=== PATIENT | female | born 1985 | race African-American/Black ===

== ENCOUNTER 2016-12-05 16:13 | Emergency (ER) | payer OTHER ==
[2016-12-05 16:28] VITALS: BP 142/81; PULSE 110; TEMP 98.1; BMI 29.6
[2016-12-05] MEDS ORDERED: RANITIDINE HCL 150 MG TABLET (FP) PO ONE (17:05)
[2016-12-05] MEDS ORDERED: RANITIDINE HCL 150 MG TABLET (FP) ONE (17:13)
--- NOTE | 2016-12-05 17:13 | PDOC ---
History of Present Illness - General Chief Complaint: Chest Pain Stated Complaint: HEARTBURN/9 WKS Time Seen by Provider: 12/05/16 16:55 History Source: Patient Exam Limitations: No Limitations - History of Present Illness Initial Comments: 12/08/16 08:32 31 yr female states 9 weeks with constipation and heartburn and nausea. Pt denies abd pain no urinary complainst, no back pain or chills. Pt states she was seen at other ER last night had pepcid and felt better. Timing/Duration: reports: intermittent Quality: reports: mild Abdominal Pain Onset Location: denies: RUQ, LUQ, RLQ, LLQ, epigastric, periumbilical, suprapubic, generalized abdomen, flank, unknown, other Pain Radiation: reports: no radiation Past History - Past Medical History Allergies/Adverse Reactions: Allergies Allergy/AdvReac Type Severity Reaction Status Date / Time penicillin G Allergy Severe Hives Verified 12/05/16 16:24 Home Medications: Ambulatory Orders Vit/Iron Fumarate/FA [ Tablet] 1 each PO BID 12/13/14 Acetaminophen [Tylenol .Regular Strength -] 650 mg PO Q4H PRN #20 tablet Ferrous Sulfate [Feosol] 325 mg PO BID #60 ud 01/21/15 Ibuprofen [Motrin -] 600 mg PO Q4H PRN #30 tablet 01/21/15 Vitamins (Sjr) - 1 tab PO DAILY #30 tablet 01/21/15 Ranitidine HCl [Zantac] 150 mg PO BID #28 tablet 12/05/16 Asthma: No Cancer: No Cardiac Disorders: No Diabetes: No HTN: No Seizures: No Thyroid Disease: No - Family Disease History Comment:: 12/08/16 08:33 unk - Immunization History Immunization Up to Date: Yes - Psycho/Social/Smoking Cessation Hx Suicidal Ideation: No Smoking History: Never smoked Have you smoked in the past 12 months: No Hx Alcohol Use: No Drug/Substance Use Hx: No Substance Use Type: None Hx Substance Use Treatment: No Abd/GI Specific PMHX - Complaint Specific PMHX Gall Bladder Disease: No GERD: No Hepatitis: No GI Ulcer Disease: No Review of Systems - Review of Systems Able to Perform ROS?: Yes Is the patient limited Yakut proficient: No Constitutional: No: Symptoms Reported HEENTM: No: Symptoms Reported Respiratory: No: Symptoms reported Cardiac (ROS): No: Symptoms Reported ABD/GI: Yes: Symptoms Reported *Physical Exam - Vital Signs Last Vital Signs Temp Pulse Resp BP Pulse Ox 98.1 F 110 H 20 142/81 100 12/05/16 16:24 12/05/16 16:24 12/05/16 16:24 12/05/16 16:24 12/05/16 16:24 - Physical Exam General Appearance: Yes: Nourished, Appropriately Dressed HEENT: positive: EOMI, DURGA, Normal ENT Inspection, TMs Normal, Pharynx Normal Neck: positive: Supple. negative: Tender Respiratory/Chest: positive: Lungs Clear, Normal Breath Sounds. negative: Chest Tender Cardiovascular: positive: Regular Rhythm, Regular Rate Gastrointestinal/Abdominal: positive: Normal Bowel Sounds, Soft. negative: Tender Musculoskeletal: positive: Normal Inspection Extremity: positive: Normal Capillary Refill, Normal Inspection, Normal Range of Motion Integumentary: positive: Normal Color, Dry, Warm Neurologic: positive: Fully Oriented, Alert, Normal Mood/Affect, Normal Response , Motor Strength 5/5 Medical Decision Making - Medical Decision Making 12/08/16 08:33 cc: early with reflux after eating certain foods, worse at night pt states I have discussed with pat changes in diet to help with constipation and with heartburn. 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 will give zantac (safe category B and preferred in ) *DC/Admit/Observation/Transfer Diagnosis at time of Disposition: Gastric reflux Constipation Qualifiers: Constipation type: unspecified constipation type Qualified Code(s): K59.00 - Constipation, unspecified - Discharge Dispostion Disposition: HOME Condition at time of disposition: Good - Prescriptions Prescriptions: Ranitidine HCl [Zantac] 150 mg PO BID #28 tablet - Patient Instructions Additional Instructions: drink Prune Juice every Day at least 8 ounces you can increase until desired effect drink 2 liters of water avoid fatty foods, fast foods, spicy foods that may trigger gas increase fiber in diet to help with constipation take Zantac as prescribed for 2 weeks if needed also take TUMS sparingly not in excess drink milk to help with heartbuen follow with your groundskeeper porter for follow up
== END 2016-12-05 17:19 | disposition home or self-care (01) ==
LOC: JERFT 16:13
DX: O99.89 Other specified diseases and conditions complicating pregnancy, childbirth and the puerperium (principal); K21.9 Gastro-esophageal reflux disease without esophagitis; Z3A.09 9 weeks gestation of pregnancy
CPT/HCPCS: 99281-25

== ENCOUNTER 2019-10-09 06:45 | Inpatient (IN) | payer OTHER ==
[2019-10-09] MEDS ORDERED: VANCOMYCIN 1 GRAM (PRE-DOCKED) 1,000 MG/250 ML BAG IVPB ONE (08:00)
[2019-10-09] MEDS ORDERED: DEXTROSE 5%-LACTATED RINGERS 1,000 ML IV SCH (08:00)
[2019-10-09] MEDS ORDERED: ELECTROLYTE-148 SOLN 1,000 ML IV SCH (08:15)
[2019-10-09] MEDS ORDERED: LIDOCAINE HCL 1% PRESERVATIVE FREE - 30ML VIAL ONE (08:27)
[2019-10-09] MEDS ORDERED: OXYTOCIN 20 UNITS in 0.9% NS 20 UNIT/1,000 ML INFUS.BAG IV ONE ×2 (08:27→11:33)
--- NOTE | 2019-10-09 09:18 | HP ---
Past Medical History - Primary Care Physician PCP:: Brody Clarke - Admission Chief Complaint: Active labor History Source: Patient Limitations to Obtaining History: No Limitations - Past Medical History SENIOR INDUSTRIAL ENGINEER: No: Alzheimer's, CVA, Dementia, Migraine, Multiple Sclerosis, Peripheral Neuropathy, Parkinson's, Seizure, Syncope, TIA, Vertigo, Other Cardiovascular: Yes: Other (asd s/p repair age 11). No: AFIB, Aneurysm, Aortic Insufficiency, Aortic Stenosis, CAD, CHF, Deep Vein Thrombosis, HTN, Hyperlipdemia, OK, Mitral Insufficiency, Mitral Stenosis, Murmur, Pulmonary Hypertension Pulmonary: No: Asthma, Bronchitis, Cancer, COPD, O2 Dependent, Pneumonia, Previously Intubated, Pulmonary Embolus, Pulmonary Fibrosis, Sleep Apnea, Other Gastrointestinal: No: Ascites, Cancer, Constipation, Crohn's Disease, Diverticulitis, Diverticulosis, Esophageal Varices, Gastritis, GERD, GI Bleed, Hemorrhoids, Hiatal Hernia, Inflamatory Bowel Disease, Irritable Bowel Disease, Pancreatitis, Peptic Ulcer Disease, Ulcerative Colitis, Other Hepatobiliary: No: Cirrhosis, Cholelithiasis, Cholecystitis, Choledocholithiasis , Hepatitis A, Hepatitis B, Hepatitis C, Other Renal/: No: Renal Failure, Renal Inusuff, BPH, Cancer, Hematuria, Hemodialysis , Neurogenic Bladder, Renal Calculi, UTI, Other Reproductive: No: Ectopic , Endometriosis, Fibroids, PID, Polycystic Ovary Syndrome, Postmenopausal, Other Heme/Onc: Yes: Anemia (during pregn). No: B12 Deficiency, Bleeding Disorder, Cancer, Current Chemotherapy, Current Radiation Therapy, Hemochromatosis, Hypercoaguable State, Myeloproliferative Synd, Sickle Cell Disease, Sickle Cell Trait, Thrombocytopenia, Other Infectious Disease: No: AIDS, C-Diff, Herpes Zoster, HIV, MRSA, STD's, Tuberculosis, VREF, Other Psych: No: Addictions, Anxiety, Bipolar, Depression, Panic, Psychosis, Schizophrenia, Other Musculoskeletal: No: Bursitis, Chronic low back pain, Hemiparesis, Hemiplegia, Osteoarthritis, Paraplegia, Other Rheumatology: No: Fibromyalgia, Gout, Lupus, Rheumatoid Arthritis, Sarcoidosis, Vasculitis, Other ENT: No: Allergic Rhinitis, Sinusitis, Other Endocrine: No: Madison's Disease, [place]'s Disease, Diabetes Insipidus, Diabetes Mellitus, Hyperparathyroidism, Hyperthyroidism, Hypothyroidism, Osteopenia, SIADH, Other Dermatology: No: Basal Cell, Cellulitis, Eczema, Melanoma, Psoriasis, Squamous Cell, Other - Past Surgical History Past Surgical History: Yes: Hx Myomectomy: No Hx Transabdominal Cerclage: No Additional Surgical History: followed by 2 successful - Smoking History Smoking history: Never smoked Have you smoked in the past 12 months: No - Alcohol/Substance Use Hx Alcohol Use: No History of Substance Use: reports: None Home Medications - Allergies Allergies/Adverse Reactions: Allergies Allergy/AdvReac Type Severity Reaction Status Date / Time penicillin G Allergy Severe Hives Verified 10/09/19 07:49 - Home Medications Home Medications: Ambulatory Orders Ferrous Sulfate [Feosol] 325 mg PO BID #60 ud 01/21/15 Vitamins (Sjr) - 1 tab PO DAILY #30 tablet 01/21/15 Family Medical History Family History: Unremarkable Review of Systems - Review of Systems Constitutional: reports: No Symptoms Eyes: reports: No Symptoms HENT: reports: No Symptoms Neck: reports: No Symptoms Cardiovascular: reports: No Symptoms Respiratory: reports: No Symptoms Gastrointestinal: reports: No Symptoms Genitourinary: reports: No Symptoms Breasts: reports: No Symptoms Reported Musculoskeletal: reports: No Symptoms Integumentary: reports: No Symptoms Neurological: reports: No Symptoms Endocrine: reports: No Symptoms Hematology/Lymphatic: reports: No Symptoms Psychiatric: reports: No Symptoms Physical Exam - Maternity Constitutional: Yes: Well Nourished HENT: Yes: Atraumatic Neck: Yes: Supple Cardiovascular: Yes: Regular Rate and Rhythm Breast(s): Yes: Other (deferred) - Abdominal Exam/OB Number of Fetuses: Single Presentation: Vertex Contractions: Yes Regularity: Regular Intensity: Moderate Monitor Mode: External Heart Rate (range): 160 Category: II Accelerations: None Decelerations: None - Vaginal Exam/OB Vaginal Bleediing: No Dilatation (cm): 10 Effacement (%): 0 Amniotic Membrane Status: Ruptured Amniotic Fluid: Yes: Meconium Stained Presentation: Vertex/Position (asynclitic, moderate meconium) Station: 0 - Physical Exam Musculoskeletal: Yes: WNL Extremities: Yes: WNL Edema: Yes Edema: LLE: Trace, RLE: Trace Integumentary: Yes: WNL Deep Tendon Reflex Grade: Normal +2 ...Motor Strength: WNL Psychiatric: Yes: Alert, Oriented Imaging - Results Ultrasound: Pending, Other (no abvailable records) Problem List - Problems (1) 40 weeks gestation of Code(s): Z3A.40 - 40 WEEKS GESTATION OF (2) (vaginal after ) Code(s): O34.219 - MATERNAL CARE FOR UNSP TYPE SCAR FROM PREVIOUS DEL Assessment/Plan 34 y/o Grand multiparous female at 40wks as per patient, no records available, fht cat I-II due to episodes of minimal variability, prior CD and 2 successful , desiring TOLAC, meconium stained fluid, asynclitic, poor maternal expulsive efforts. Patient counseled regarding TOLAC after CD and all questions answered. -Intrauterine resuscitation efforts -Passive descent -Continuous monitoring -Efforts will be made to obtain records.
[2019-10-09] MEDS ORDERED: WITCH HAZEL 50% (TUCKS) 40 PAD/JAR PAD TP PRN (10:00)
[2019-10-09] MEDS ORDERED: OXYTOCIN 20 UNITS in 0.9% NS 20 UNIT/1,000 ML INFUS.BAG IV SCH (10:00)
[2019-10-09] MEDS ORDERED: BENZOCAINE 20% 57 GM BOTTLE TP PRN (10:00)
[2019-10-09] MEDS ORDERED: BISACODYL 10 MG SUPP.RECT RC PRN (10:00)
[2019-10-09] MEDS ORDERED: BENZOCAINE 28 GM HEMORRHOIDAL OINTMENT TP PRN (10:00)
[2019-10-09] MEDS ORDERED: MISOPROSTOL 100 MCG TABLET PV ONE (10:01)
[2019-10-09] MEDS ORDERED: IBUPROFEN 600 MG TABLET (FP) PO ONE (10:07)
[2019-10-09] MEDS ORDERED: ACETAMINOPHEN 325 MG TABLET (FP) ONE (10:08)
[2019-10-09] MEDS: ACETAMINOPHEN 325 MG TABLET (FP) PO PRN ×2 (10:10→18:31)
[2019-10-09] MEDS: IBUPROFEN 600 MG TABLET (FP) PO PRN ×2 (10:10→18:31)
--- NOTE | 2019-10-09 10:10 | PN ---
Delivery - Delivery Vaginal Delivery: Spontaneous Type of Anesthesia: None Episiotomy/Laceration: None EBL (cc): 50 Delivery, Single - Stages of Labor Placenta: Yes: Spontaneous - Condition of Infant Meat Carrier/Meat Cutter Present: No Infant Gender: Female Position: Left, OA Remarks - Remarks Remarks: delivered precipitously SIMON, no Nuchal cord. Cord clamped after delay and samples for gases and blood obtained. Placenta delivered spontaneously and intact, 3VC. Exam revealed firm fundus and no laceration. Excellent hemostasis noted and misoprostol administered HI prophylactically. Sponge and instrument count correct x 2 and confirmed by nurse.
[2019-10-09 10:23] VITALS: BMI 32.8
[2019-10-09 11:47] LABS: BASO % 0.3 % (0-2.0); EOS % 0.3 % (0-4.5); HEMATOCRIT 30.2 % (32.4-45.2); HEMOGLOBIN 9.3 GM/dL (10.7-15.3); MCH 22.4 pg (25.7-33.7); MCHC 30.7 g/dl (32.0-36.0); MEAN CELL VOLUME 72.9 fl (80-96); MEAN PLT VOLUME 8.4 fl (7.5-11.1); MONO % 7.4 % (3.8-10.2); PLATELET COUNT 306 K/MM3 (134-434); RBC 4.15 M/mm3 (3.60-5.2); RDW 25.5 % (11.6-15.6); WHITE BLOOD COUNT 9.1 K/mm3 (4.0-10.0)
[2019-10-09 11:52] LABS: BLOOD UREA NITROGEN 8.4 mg/dL (7-18); CALCIUM 8.8 mg/dL (8.5-10.1); CREATININE 0.6 mg/dL (0.55-1.3)
[2019-10-09] MEDS ORDERED: MISOPROSTOL 200 MCG TABLET PV ONE (12:00)
[2019-10-09 12:11] LABS: INR 0.93 (0.83-1.09)
[2019-10-09 12:14] LABS: ACTIVATED PTT 27.7 SECONDS (25.2-36.5)
[2019-10-09 14:27] LABS: ANISOCYTOSIS 1+; MACROCYTOSIS 0; PLATELET ESTIMATE NORMAL
--- NOTE | 2019-10-10 07:44 | PN ---
Post Progress Note - Subjective Subjective: Ambulating, tolerating PO, lochia decreased, breast and bottle feeding Post Day: 1 Type of Delivery: Vital Signs: Vital Signs Temperature 98.7 F 10/10/19 05:46 Pulse Rate 80 10/10/19 05:46 Respiratory Rate 18 10/10/19 05:46 Blood Pressure 102/59 L 10/10/19 05:46 O2 Sat by Pulse Oximetry (%) 100 10/09/19 11:00 Breast Exam: Yes: Soft Uterus: Yes: Fundus Firm Abdomen/GI: Yes: Abdomen soft Lochia, amount: Small Extremities: Yes: Calves non-tender Activity: Ambulating - Labs Labs: CBC WBC 9.1 K/mm3 (4.0-10.0) 10/09/19 10:46 RBC 4.15 M/mm3 (3.60-5.2) 10/09/19 10:46 Hgb 9.3 GM/dL (10.7-15.3) L 10/09/19 10:46 Hct 30.2 % (32.4-45.2) L 10/09/19 10:46 MCV 72.9 fl (80-96) L 10/09/19 10:46 MCH 22.4 pg (25.7-33.7) L 10/09/19 10:46 MCHC 30.7 g/dl (32.0-36.0) L 10/09/19 10:46 RDW 25.5 % (11.6-15.6) H 10/09/19 10:46 Plt Count 306 K/MM3 (134-434) D 10/09/19 10:46 MPV 8.4 fl (7.5-11.1) 10/09/19 10:46 Absolute Neuts (auto) 7.3 K/mm3 (1.5-8.0) 10/09/19 10:46 Neutrophils % 80.0 % (42.8-82.8) 10/09/19 10:46 Lymphocytes % 12.0 % (8-40) D 10/09/19 10:46 Monocytes % 7.4 % (3.8-10.2) 10/09/19 10:46 Eosinophils % 0.3 % (0-4.5) D 10/09/19 10:46 Basophils % 0.3 % (0-2.0) 10/09/19 10:46 Nucleated RBC % 0 % (0-0) 10/09/19 10:46 Hypochromia 1+ 10/09/19 10:46 Platelet Estimate Normal 10/09/19 10:46 Polychromasia 1+ 10/09/19 10:46 Poikilocytosis 1+ 10/09/19 10:46 Anisocytosis 1+ 10/09/19 10:46 Microcytosis 1+ 10/09/19 10:46 Macrocytosis 0 10/09/19 10:46 Problem List - Problems (1) 40 weeks gestation of Code(s): Z3A.40 - 40 WEEKS GESTATION OF (2) (vaginal after ) Code(s): O34.219 - MATERNAL CARE FOR UNSP TYPE SCAR FROM PREVIOUS DEL Assessment/Plan PPD # 1 S/P in stable condition -Continue inpatient care -Anticipate D/C home tomorrow
[2019-10-10 09:01] LABS: BASO % 0.7 % (0-2.0); HEMATOCRIT 28.8 % (32.4-45.2); HEMOGLOBIN 8.9 GM/dL (10.7-15.3); LYMPH % 14.6 % (8-40); MCH 22.5 pg (25.7-33.7); MCHC 30.8 g/dl (32.0-36.0); MEAN CELL VOLUME 72.9 fl (80-96); MONO % 6.8 % (3.8-10.2); NEUT % 75.9 % (42.8-82.8); PLATELET COUNT 294 K/MM3 (134-434); RBC 3.95 M/mm3 (3.60-5.2); RDW 25.2 % (11.6-15.6); WHITE BLOOD COUNT 12.1 K/mm3 (4.0-10.0)
[2019-10-10 13:12] VITALS: PULSE 84
[2019-10-10] MEDS ORDERED: SENNOSIDES/DOCUSATE COMBO (SENNA PLUS) TABLET (UD) PO PRN (22:00)
[2019-10-11] MEDS: IBUPROFEN 600 MG TABLET (FP) PO PRN (02:07)
[2019-10-11] MEDS: ACETAMINOPHEN 325 MG TABLET (FP) PO PRN (02:07)
--- NOTE | 2019-10-11 08:34 | DS ---
Physical Examination Vital Signs: Vital Signs Temperature 98.1 F 10/10/19 22:00 Pulse Rate 84 10/10/19 22:00 Respiratory Rate 20 10/10/19 22:00 Blood Pressure 118/68 10/10/19 22:00 O2 Sat by Pulse Oximetry (%) 100 10/09/19 11:00 Findings/Remarks: Ambulating, voiding, breast feeding, lochia decreased. Desiring to go home and all questions answered. Constitutional: Yes: No Distress Eyes: Yes: WNL HENT: Yes: Atraumatic Neck: Yes: Supple Cardiovascular: Yes: Regular Rate and Rhythm Respiratory: Yes: Regular Gastrointestinal: Yes: Normal Bowel Sounds ...Rectal Exam: Yes: Deferred Renal/: Yes: Other (deferred) Breast(s): Yes: Other (deferred) Musculoskeletal: Yes: WNL Extremities: Yes: WNL Edema: Yes Edema: LLE: Trace, RLE: Trace Integumentary: Yes: WNL Neurological: Yes: Alert, Oriented ...Motor Strength: WNL Psychiatric: Yes: Alert, Oriented Labs: CBC, BMP 10/10/19 07:45 10/09/19 10:46 Discharge Summary Problems reviewed: Yes Reason For Visit: LABOR Current Active Problems (vaginal after ) (Acute) Procedures: Principal: vaginal delivery after section Hospital Course: Uncomplicated and recovery. patient seen and evaluated on PPD # 2 and in stable condition, ready for discharge. Plan of Treatment: PP recovery Condition: Stable - Instructions Diet, Activity, Other Instructions: Return to regular diet and activity as tolerated. Follow up in 6-8 weeks for PP visit. Call MD with any questions or concerns Referrals: Aura Leon MD [Staff Physician] - Disposition: HOME - Home Medications Comprehensive Discharge Medication List: Ambulatory Orders Ferrous Sulfate [Feosol] 325 mg PO BID #60 ud 01/21/15 Vitamins (Sjr) - 1 tab PO DAILY #30 tablet 01/21/15 Ibuprofen 600 mg PO Q6H PRN #30 tablet 10/09/19
[2019-10-11 11:57] VITALS: BP 127/77; TEMP 98.2
== END 2019-10-11 11:30 | disposition home or self-care (01) | DRG 560 ==
LOC: JLDR 06:45 → J3W 12:00
PROVIDERS: ADMIT Student in an Organized Health Care Education/Training Program; ATTEND Student in an Organized Health Care Education/Training Program
PROC: 10E0XZZ Delivery of Products of Conception, External Approach (ICD-10-PCS; principal; 2019-10-09)
DX: O34.211 Maternal care for low transverse scar from previous cesarean delivery (principal); N85.8 Other specified noninflammatory disorders of uterus; Z3A.40 40 weeks gestation of pregnancy; Z37.0 Single live birth
CPT/HCPCS: 36415; 36600; 59409; 80048; 82803; 85025; 85610; 85730; 86593; 86850; 86900; 86901; 87389

== ENCOUNTER 2021-03-16 23:15 | Inpatient (IN) | payer OTHER ==
[2021-03-17] MEDS: ELECTROLYTE-148 SOLN 1,000 ML IV SCH ×3 (00:15→14:00)
[2021-03-17] MEDS: VANCOMYCIN 1 GM in D5W (PRE-DOCKED) 1,000 MG/250 ML IVPB SCH ×2 (00:35→08:40)
[2021-03-17 00:53] LABS: BASO % 0.7 % (0-2.0); EOS % 1.5 % (0-4.5); HEMATOCRIT 30.9 % (32.4-45.2); HEMOGLOBIN 9.8 GM/dL (10.7-15.3); LYMPH % 21.2 % (8-40); MCH 24.6 pg (25.7-33.7); MCHC 31.8 g/dl (32.0-36.0); MEAN CELL VOLUME 77.4 fl (80-96); MEAN PLT VOLUME 9.3 fl (7.5-11.1); MONO % 8.4 % (3.8-10.2); NEUT % 68.2 % (42.8-82.8); PLATELET COUNT 348 K/MM3 (134-434); RBC 3.99 M/mm3 (3.60-5.2); WHITE BLOOD COUNT 10.3 K/mm3 (4.0-10.0)
[2021-03-17 00:58] VITALS: BMI 34.6
[2021-03-17 00:59] LABS: INR 0.96 (0.83-1.09); PROTHROMBIN TIME (PATIENT) 11.8 SEC (9.7-13.0)
[2021-03-17 01:01] LABS: ACTIVATED PTT 27.8 SECONDS (25.2-36.5)
[2021-03-17] MEDS ORDERED: PCA PUMP NR ONE ×2 (01:09→09:13)
[2021-03-17] MEDS ORDERED: FENTANYL/BUPIVACAINE/NS/PF - PCEA - 50 ML DISP.SYRIN EP ONE ×3 (01:10→17:48)
[2021-03-17 01:12] LABS: CALCIUM 9.2 mg/dL (8.5-10.1)
[2021-03-17] MEDS ORDERED: BUPIVACAINE HCL/PF 0.25% (2.5MG/ML) 10 ML VIAL ONE (01:12)
[2021-03-17 01:13] LABS: BLOOD UREA NITROGEN 7.9 mg/dL (7-18)
[2021-03-17 01:16] LABS: CREATININE 0.7 mg/dL (0.55-1.3)
[2021-03-17] MEDS ORDERED: OXYTOCIN 30 UNITS in 0.9% NS 30 UNIT/500 ML INFUS.BAG IVPB SCH (01:45)
[2021-03-17] MEDS: FENTANYL/BUPIVACAINE/NS/PF - PCEA - 50 ML DISP.SYRIN EP SCH ×3 (09:40→17:50)
[2021-03-17] MEDS ORDERED: NALOXONE HCL 0.4 MG/ML VIAL IVPUSH PRN (09:53)
[2021-03-17] MEDS ORDERED: ePHEDrine SULFATE 50 MG/1 ML AMPULE ONE (17:48)
[2021-03-17] MEDS: OXYTOCIN 20 UNITS in 0.9% NS 20 UNIT/1,000 ML INFUS.BAG IV SCH ×2 (19:30→21:10)
[2021-03-17] MEDS ORDERED: METHYLERGONOVINE MALEATE 0.2 MG/1 ML AMP IM PRN (19:44)
[2021-03-17] MEDS ORDERED: WITCH HAZEL 50% (TUCKS) 40 PAD/JAR PAD TP PRN (19:44)
[2021-03-17] MEDS ORDERED: BENZOCAINE 28 GM HEMORRHOIDAL OINTMENT TP PRN (19:44)
[2021-03-17] MEDS ORDERED: BISACODYL 10 MG SUPP.RECT RC PRN (19:44)
[2021-03-17] MEDS ORDERED: BENZOCAINE 20% 57 GM BOTTLE TP PRN (19:44)
[2021-03-17] MEDS ORDERED: MISOPROSTOL 200 MCG TABLET PV ONE (19:45)
[2021-03-17] MEDS ORDERED: OXYTOCIN 20 UNITS in 0.9% NS 20 UNIT/1,000 ML INFUS.BAG IV ONE (21:06)
[2021-03-17] MEDS: IBUPROFEN 600 MG TABLET (FP) PO PRN (22:47)
[2021-03-17] MEDS: ACETAMINOPHEN 325 MG TABLET (FP) PO PRN (22:47)
[2021-03-18 08:58] LABS: BASO % 0.4 % (0-2.0); EOS % 1.3 % (0-4.5); HEMATOCRIT 27.9 % (32.4-45.2); HEMOGLOBIN 8.8 GM/dL (10.7-15.3); MCH 24.5 pg (25.7-33.7); MCHC 31.5 g/dl (32.0-36.0); MEAN CELL VOLUME 77.7 fl (80-96); MEAN PLT VOLUME 8.6 fl (7.5-11.1); MONO % 8.5 % (3.8-10.2); NEUT % 78.8 % (42.8-82.8); PLATELET COUNT 299 K/MM3 (134-434); RBC 3.59 M/mm3 (3.60-5.2); WHITE BLOOD COUNT 12.1 K/mm3 (4.0-10.0)
[2021-03-18] MEDS: FERROUS SO4 325 MG TABLET (FP) PO SCH ×4 (09:21→17:29)
[2021-03-18] MEDS: PRENATAL VITAMINS W/ FOLIC ACID TABLET (FP) PO SCH (09:21)
[2021-03-18] MEDS: IBUPROFEN 600 MG TABLET (FP) PO PRN (14:22)
[2021-03-18] MEDS: ACETAMINOPHEN 325 MG TABLET (FP) PO PRN (14:23)
[2021-03-18] MEDS: FENTANYL/BUPIVACAINE/NS/PF - PCEA - 50 ML DISP.SYRIN EP SCH (19:54)
[2021-03-18] MEDS ORDERED: SENNOSIDES/DOCUSATE COMBO (SENNA PLUS) TABLET (UD) PO PRN (22:00)
[2021-03-19] MEDS: FERROUS SO4 325 MG TABLET (FP) PO SCH ×2 (09:47→12:31)
[2021-03-19] MEDS: PRENATAL VITAMINS W/ FOLIC ACID TABLET (FP) PO SCH (09:47)
[2021-03-19] MEDS: IBUPROFEN 600 MG TABLET (FP) PO PRN (10:43)
[2021-03-19] MEDS: ACETAMINOPHEN 325 MG TABLET (FP) PO PRN (10:44)
[2021-03-19 10:51] VITALS: BP 119/77; PULSE 74; TEMP 98.8
== END 2021-03-19 12:40 | disposition home or self-care (01) | DRG 560 ==
LOC: JLDR 23:15 → J3W 03-17 21:34
PROVIDERS: ADMIT Obstetrics & Gynecology; ATTEND Obstetrics & Gynecology
PROC: 10E0XZZ Delivery of Products of Conception, External Approach (ICD-10-PCS; principal; 2021-03-16)
DX: O34.219 Maternal care for unspecified type scar from previous cesarean delivery (principal); O42.02 Full-term premature rupture of membranes, onset of labor within 24 hours of rupture; O99.214 Obesity complicating childbirth; E66.9 Obesity, unspecified; O99.824 Streptococcus B carrier state complicating childbirth; O69.81X0 Labor and delivery complicated by cord around neck, without compression, not applicable or unspecified; Z3A.39 39 weeks gestation of pregnancy; Z37.0 Single live birth
CPT/HCPCS: 36415; 59409; 80048; 85025; 85610; 85730; 86780; 86850; 86900; 86901; C9803; U0003; U0005

== ENCOUNTER 2021-04-19 14:20 | Emergency (ER) | payer OTHER ==
[2021-04-19 14:47] VITALS: TEMP 98.6; BMI 32.1
[2021-04-19] MEDS ORDERED: LABETALOL HCL 100 MG TABLET (FP) PO ONE ×2 (16:14→18:13)
[2021-04-19] MEDS ORDERED: LABETALOL HCL 100 MG TABLET (FP) ONE ×2 (16:21→18:15)
[2021-04-19 16:25] LABS: BASO % 0.6 % (0-2.0); EOS % 1.7 % (0-4.5); HEMATOCRIT 36.8 % (32.4-45.2); HEMOGLOBIN 11.6 GM/dL (10.7-15.3); MCHC 31.5 g/dl (32.0-36.0); MEAN CELL VOLUME 76.2 fl (80-96); MEAN PLT VOLUME 8.5 fl (7.5-11.1); MONO % 6.6 % (3.8-10.2); NEUT % 69.1 % (42.8-82.8); PLATELET COUNT 309 10^3/uL (134-434); RBC 4.83 M/mm3 (3.60-5.2); RDW 18.4 % (11.6-15.6); WHITE BLOOD COUNT 6.2 K/mm3 (4.0-10.0)
[2021-04-19 16:30] LABS: ALBUMIN 4.2 g/dl (3.4-5.0); BLOOD UREA NITROGEN 6.7 mg/dL (7-18); CALCIUM 9.6 mg/dL (8.5-10.1)
[2021-04-19 16:33] LABS: CREATININE 0.8 mg/dL (0.55-1.3)
[2021-04-19 16:35] LABS: BILIRUBIN,TOTAL 0.4 mg/dL (0.2-1)
[2021-04-19 16:38] LABS: INR 0.99 (0.83-1.09); PROTHROMBIN TIME (PATIENT) 12.2 SEC (9.7-13.0)
[2021-04-19 16:40] LABS: ACTIVATED PTT 30.8 SECONDS (25.2-36.5)
[2021-04-19 17:55] LABS: PH,URINE 8.5 (5.0-8.0); URINE APPEARANCE Clear; URINE BILIRUBIN Negative (NEGATIVE); URINE COLOR Yellow; URINE GLUCOSE (UA) Negative (NEGATIVE); URINE KETONE Negative (NEGATIVE); URINE LEUK ESTERASE Trace (NEGATIVE); URINE NITRITE Negative (NEGATIVE); URINE PROTEIN Negative (NEGATIVE); URINE UROBILINOGEN 0.2 mg/dL (0.2-1.0)
[2021-04-19 17:57] VITALS: PULSE 86
[2021-04-19 18:41] VITALS: BP 160/108
[2021-04-19 20:10] LABS: EPI CELLS 0-3 /HPF; URINE BACTERIA FEW /hpf (NEGATIVE); URINE RBC 2-5/HPF /hpf (0-4); URINE WBC 0-3/HPF (NEGATIVE)
== END 2021-04-19 18:56 | disposition home or self-care (01) ==
LOC: JER 14:20
DX: O16.5 Unspecified maternal hypertension, complicating the puerperium (principal)
CPT/HCPCS: 36415; 71046-TC-FY; 80053; 81003; 85025; 85610; 85730; 86850; 86900; 86901; 93005; 93010; 99284-25

== ENCOUNTER 2021-08-31 09:25 | Emergency (ER) | payer OTHER ==
[2021-08-31 09:34] VITALS: BP 169/97; PULSE 103; TEMP 98.6; BMI 34.4
== END 2021-08-31 11:47 | disposition home or self-care (01) ==
LOC: JERFT 09:25
DX: H93.11 Tinnitus, right ear (principal)
CPT/HCPCS: 99283-25